=== PATIENT | female | born 2000 | race African-American/Black ===

== ENCOUNTER 2021-09-28 01:35 | Emergency (ER) | payer OTHER ==
[~2021-09-28] VITALS: Ht 162.6 cm; Wt 112.5 kg
[2021-09-28 03:14] VITALS: BP 120/81; TEMP 98.4
== END 2021-09-28 03:14 | disposition home or self-care (01) ==
LOC: ED 01:35
DX: G62.89 Other specified polyneuropathies (principal)
CPT/HCPCS: 96372; 99283; J1885; J2930